=== PATIENT | female | born 1970 | race Caucasian/White ===

== ENCOUNTER 2022-02-15 11:13 | Outpatient (CLI) | payer OTHER, SELFPAY ==
--- NOTE | 2022-02-15 11:00 | RT.EKG_ITS ---
APPROVED REPORT Exam: Resting ECG Reason for Exam: chest pain Patient Location: O HR:67 bpm ECG Measurements Heart Rate 67 AXIS MS 186 P 41 QRSd 75 QRS -9 QT 383 T 55 QTc 405 Conclusion Sinus rhythm...normal P axis, V-rate 50- 99 Poor R wave progression
== END 2022-02-15 11:14 | disposition home or self-care (01) ==
LOC: DI.CM 11:13
PROVIDERS: Visit Provider Nurse Practitioner Family
DX: R07.9 Chest pain, unspecified (principal)
CPT/HCPCS: 93010

== ENCOUNTER 2022-06-09 14:25 | Outpatient (CLI) | payer MEDICARE, SELFPAY ==
--- NOTE | 2022-06-09 13:10 | DI.RAD_ITS ---
Exam(s) XR KNEE RT 3V AP,LAT,VERN EXAM: XR KNEE RT 3V AP,LAT,VERN CLINICAL HISTORY: Twisting injury skiing, right knee pain,instability,[id number],sprain. TECHNIQUE: 2D digital imaging was performed of the right knee. Three views obtained. AP, lateral an d PA tunnel views were obtained. COMPARISON: No exams were available for comparison FINDINGS: BONES: No acute fracture is present. No bony destructive lesion is seen. JOINTS: The knee is normally aligned. There is a small joint effusion. SOFT TISSUE: Normal. IMPRESSION: Small joint effusion. DATA REPOSITORY: RADIATION DOSE DELIVERED:
== END 2022-06-09 14:45 ==
PROVIDERS: Visit Provider Physician Assistant Medical
DX: M25.561 Pain in right knee (principal); M25.361 Other instability, right knee; M25.461 Effusion, right knee; S83.511A Sprain of anterior cruciate ligament of right knee, initial encounter
CPT/HCPCS: 73562